=== PATIENT | female | born 1970 | race African-American/Black ===

== ENCOUNTER 2019-12-15 10:53 | Inpatient (IN) | payer MEDICARE, MEDICAID ==
[~2019-12-15] VITALS: Ht 154.3 cm; Wt 85.3 kg
[~2019-12-15 10:53] MED LIST: BENA40TA9
[2019-12-15] MEDS ORDERED: ONDANSETRON HCL 4MG/2ML INJ IV STA (13:06)
[2019-12-15] MEDS ORDERED: SODIUM CHLORIDE 0.9% 1,000 ML IV ONE (13:06)
[2019-12-15] MEDS ORDERED: MORPHINE SULFATE 4 MG/ML CPJ (NOT FOR IM USE) IV STA (13:06)
[2019-12-15 13:21] LABS: BASOPHILS % 0.6 % (0.0-2.0); EOSINOPHILS % 2.8 % (0.0-5.0); HEMATOCRIT. 41.9 % (36.0-48.0); HEMOGLOBIN. 14.9 g/dL (12.0-16.0); LYMPHOCYTES % 43.1 % (20.0-50.0); MEAN CORPUSCULAR HEMOGLOBIN 31.3 pg (28.0-32.0); MEAN CORPUSCULAR VOLUME 88.2 fL (81.0-99.0); MEAN PLATELET VOLUME 9.2 fl (7.4-10.4); MONOCYTES % 13.4 % (2.0-8.0); NEUTROPHILS % 40.1 % (40.0-76.0); PLATELET 195 x1000/uL (130-400); RED BLOOD CELL COUNT 4.75 mill/uL (4.2-5.4)
[2019-12-15 13:27] LABS: HCG SCREEN NEGATIVE
[2019-12-15 13:28] LABS: CHLORIDE 108 mEq/L (98-107)
[2019-12-15 14:43] LABS: INR 1.1; PROTHROMBIN TIME 11.4 sec (9.6-11.0)
[2019-12-15] MEDS ORDERED: MORPHINE SULFATE 4 MG/ML CPJ (NOT FOR IM USE) IV ONE (15:30)
[2019-12-15] MEDS ORDERED: ONDANSETRON HCL 4MG/2ML INJ IV ONE (15:30)
[2019-12-15] MEDS ORDERED: CLONIDINE 0.1MG TABLET PO PRN (18:00)
[2019-12-15] MEDS ORDERED: IOHEXOL-300 100 ML BOTTLE ONE (18:08)
[2019-12-15 19:10] LABS: HEPATITIS A AB IGM NEGATIVE (NEGATIVE)
[2019-12-15] MEDS: MORPHINE SULFATE 2 MG/ML CPJ (NOT FOR IM USE) IV PRN (20:23)
[2019-12-15] MEDS: ONDANSETRON HCL 4MG/2ML INJ IV PRN (20:23)
[2019-12-15 20:33] LABS: HEPATITIS B SURFACE ANTIGEN REACTIVE PEND CONFIR
[2019-12-15] MEDS ORDERED: POTASSIUM CHLORIDE 20MEQ TABLET SR PO NR (21:00)
[2019-12-16] VITALS (7 sets, daily range): BP systolic 114–164; BP diastolic 57–88
[2019-12-16] MEDS: DEXT 5%/0.45% NACL 1000ML 1,000 ML IV SCH ×3 (02:16→22:26)
[2019-12-16] MEDS: ONDANSETRON HCL 4MG/2ML INJ IV PRN (06:59)
[2019-12-16] MEDS: MORPHINE SULFATE 2 MG/ML CPJ (NOT FOR IM USE) IV PRN (06:59)
[2019-12-16 07:15] LABS: BASOPHILS % 0.6 % (0.0-2.0); EOSINOPHILS % 4.2 % (0.0-5.0); HEMOGLOBIN. 14.4 g/dL (12.0-16.0); LYMPHOCYTES % 35.3 % (20.0-50.0); MEAN CORPUSCULAR HEMOGLOBIN 30.6 pg (28.0-32.0); MEAN CORPUSCULAR VOLUME 89.3 fL (81.0-99.0); MEAN PLATELET VOLUME 8.7 fl (7.4-10.4); MONOCYTES % 12.1 % (2.0-8.0); NEUTROPHILS % 47.8 % (40.0-76.0); PLATELET 176 x1000/uL (130-400); RED CELL DISTRIBUTION WIDTH 13.8 % (11.6-14.6)
[2019-12-16 07:36] LABS: CHLORIDE 105 mEq/L (98-107)
[2019-12-16] MEDS: AMLODIPINE 5MG TABLET PO SCH ×2 (09:19→21:00)
[2019-12-16] MEDS: ASPIRIN 81MG TABLET PO SCH (13:45)
[2019-12-16] MEDS: ENOXAPARIN 40MG/0.4ML SYR SUBCUT SCH (13:53)
[2019-12-16] MEDS: MECLIZINE 25MG TABLET PO PRN (22:34)
[2019-12-16 23:47] LABS: CLARITY URINE CLOUDY (CLEAR); COLOR URINE YELLOW (YELLOW); KETONES URINE NEGATIVE (NEGATIVE); LEUKOCYTE ESTERASE URINE 3+ (NEGATIVE); NITRITE URINE NEGATIVE (NEGATIVE); OCCULT BLOOD URINE NEGATIVE (NEGATIVE); PROTEIN URINE NEGATIVE (NEGATIVE); SPECIFIC GRAVITY URINE 1.005 (1.005-1.030)
[2019-12-17] VITALS: BP 159/102
[2019-12-17 04:00] VITALS: BP 138/93
[2019-12-17] MEDS: DEXT 5%/0.45% NACL 1000ML 1,000 ML IV SCH ×3 (07:30→21:44)
[2019-12-17 07:56] LABS: BASOPHILS % 0.8 % (0.0-2.0); EOSINOPHILS % 9.5 % (0.0-5.0); HEMATOCRIT. 45.4 % (36.0-48.0); HEMOGLOBIN. 15.2 g/dL (12.0-16.0); LYMPHOCYTES % 38.7 % (20.0-50.0); MEAN CORPUSCULAR HEMOGLOBIN 30.1 pg (28.0-32.0); MEAN PLATELET VOLUME 8.6 fl (7.4-10.4); MONOCYTES % 10.4 % (2.0-8.0); NEUTROPHILS % 40.6 % (40.0-76.0); PLATELET 202 x1000/uL (130-400); RED BLOOD CELL COUNT 5.05 mill/uL (4.2-5.4); RED CELL DISTRIBUTION WIDTH 13.4 % (11.6-14.6)
[2019-12-17 07:59] LABS: CHLORIDE 106 mEq/L (98-107)
[2019-12-17] MEDS: AMLODIPINE 5MG TABLET PO SCH ×2 (08:58→21:00)
[2019-12-17] MEDS: ASPIRIN 81MG TABLET PO SCH (08:58)
[2019-12-17] MEDS: ENOXAPARIN 40MG/0.4ML SYR SUBCUT SCH (08:59)
[2019-12-17 12:00] VITALS: BP 140/80
[2019-12-17] MEDS: MECLIZINE 25MG TABLET PO PRN (12:55)
[2019-12-17] MEDS: ONDANSETRON HCL 4MG/2ML INJ IV PRN (12:55)
[2019-12-17 14:49] LABS: T4 FREE 1.12 ng/dL (0.76-1.46)
[2019-12-17 16:00] VITALS: BP 127/82
[2019-12-17] MEDS: MORPHINE SULFATE 2 MG/ML CPJ (NOT FOR IM USE) IV PRN (16:00)
[2019-12-17] MEDS: CEFTRIAXONE 1 G PREMIX 50 ML IV SCH (17:58)
[2019-12-17 20:00] VITALS: BP 118/66
[2019-12-18] VITALS: BP 127/83
[2019-12-18] MEDS: ONDANSETRON HCL 4MG/2ML INJ IV PRN ×3 (01:55→15:28)
[2019-12-18] MEDS: MORPHINE SULFATE 2 MG/ML CPJ (NOT FOR IM USE) IV PRN ×4 (01:55→20:47)
[2019-12-18 04:00] VITALS: BP 124/76
[2019-12-18 08:00] VITALS: BP 129/77
[2019-12-18] MEDS: AMLODIPINE 5MG TABLET PO SCH ×2 (09:49→20:47)
[2019-12-18] MEDS: ASPIRIN 81MG TABLET PO SCH (09:49)
[2019-12-18] MEDS: ENOXAPARIN 40MG/0.4ML SYR SUBCUT SCH (09:49)
[2019-12-18 12:00] VITALS: BP 143/83
[2019-12-18] MEDS: MECLIZINE 25MG TABLET PO PRN (15:28)
[2019-12-18] MEDS: CEFTRIAXONE 1 G PREMIX 50 ML IV SCH (15:28)
[2019-12-18] MEDS: DEXT 5%/0.45% NACL 1000ML 1,000 ML IV SCH (16:34)
[2019-12-18 20:00] VITALS: BP 146/86
[2019-12-19] VITALS: BP 129/79
[2019-12-19] MEDS: MECLIZINE 25MG TABLET PO PRN (00:28)
[2019-12-19] MEDS ORDERED: DIPHENHYDRAMINE 50MG CAPSULE PO PRN (00:45)
[2019-12-19] MEDS: MORPHINE SULFATE 2 MG/ML CPJ (NOT FOR IM USE) IV PRN ×3 (02:54→14:46)
[2019-12-19 04:00] VITALS: BP 122/77
[2019-12-19] MEDS: DEXT 5%/0.45% NACL 1000ML 1,000 ML IV SCH ×2 (05:33→09:36)
[2019-12-19 06:07] LABS: CHLORIDE 106 mEq/L (98-107)
[2019-12-19 08:00] VITALS: BP 118/87
[2019-12-19] MEDS ORDERED: PANT40TA4 MT (09:00)
[2019-12-19] MEDS: ASPIRIN 81MG TABLET PO SCH (09:00)
[2019-12-19] MEDS ORDERED: HYDR200T80 PO (09:00)
[2019-12-19] MEDS: AMLODIPINE 5MG TABLET PO SCH (09:01)
[2019-12-19] MEDS: ENOXAPARIN 40MG/0.4ML SYR SUBCUT SCH (09:01)
[2019-12-19] MEDS ORDERED: KDUR10 MT (09:03)
[2019-12-19] MEDS ORDERED: HYDR25TA MT (09:03)
[2019-12-19] MEDS: ONDANSETRON HCL 4MG/2ML INJ IV PRN (09:14)
[2019-12-19] MEDS ORDERED: TENO25TA MT ×2 (09:28→12:59)
[2019-12-19 12:00] VITALS: BP 107/70
[2019-12-19] MEDS ORDERED: POTASSIUM CHLORIDE 20MEQ TABLET SR PO SCH (12:00)
[2019-12-19] MEDS ORDERED: LEVO500T2 MT (12:59)
[2019-12-19] MEDS ORDERED: MECL-159 MT (13:00)
[2019-12-19 13:17] VITALS: BP 107/70
[2019-12-19] MEDS ORDERED: HYDR-4009 MT (13:39)
[2019-12-19] MEDS: CEFTRIAXONE 1 G PREMIX 50 ML IV SCH (15:24)
[2019-12-19 16:00] VITALS: BP 109/75
[2019-12-20] MEDS ORDERED: PANTOPRAZOLE 40MG DR TABLET PO SCH (07:20)
[2019-12-20] MEDS ORDERED: HYDROCHLOROTHIAZIDE 25MG TABLET PO SCH (09:00)
[2019-12-20] MEDS ORDERED: HYDROXYCHLOROQUINE SULFATE 200MG TABLET PO SCH (09:00)
[2019-12-21 07:10] LABS: HBSAG CONFIRMATION Positive (.); HBSAG SCREEN Confirm. indicated (Negative)
== END 2019-12-19 17:00 | disposition home or self-care (01) | DRG 74 ==
LOC: ER 10:53 → 6EST 17:00 → ENRESERV 23:41
PROVIDERS: ADMIT Internal Medicine; ATTEND Internal Medicine
DX: G90.8 Other disorders of autonomic nervous system (principal); N39.0 Urinary tract infection, site not specified; B19.10 Unspecified viral hepatitis B without hepatic coma; I16.0 Hypertensive urgency; E05.90 Thyrotoxicosis, unspecified without thyrotoxic crisis or storm; E87.6 Hypokalemia; R74.0 Nonspecific elevation of levels of transaminase and lactic acid dehydrogenase [LDH]; E87.8 Other disorders of electrolyte and fluid balance, not elsewhere classified; E66.9 Obesity, unspecified; I10 Essential (primary) hypertension; E03.9 Hypothyroidism, unspecified; M06.9 Rheumatoid arthritis, unspecified; Z79.899 Other long term (current) drug therapy; Z85.3 Personal history of malignant neoplasm of breast; Z71.3 Dietary counseling and surveillance; Z68.35 Body mass index [BMI] 35.0-35.9, adult
CPT/HCPCS: 36415; 70551; 72148; 74177; 80048; 80053; 81003; 84439; 84443; 84481; 84703; 85025; 86705; 86709; 86803; 87077; 87186; 87340; 93005; 96361; 96374; 96375; 96376; 97162; 97530; 99285; J0696; J1650; J2270; J2405; J7030; J8597; Q0163; Q9967